=== PATIENT | female | born 1965 | race African-American/Black ===

== ENCOUNTER 2020-02-03 18:40 | Inpatient (IN) | payer MEDICARE, MEDICAID ==
[~2020-02-03] VITALS: Ht 160 cm; Wt 83.5 kg
[2020-02-03] MEDS ORDERED: SODIUM CHLORIDE 0.9% 1,000 ML IV ONE (21:08)
[2020-02-04 00:12] LABS: BASOPHILS % 0.5 % (0.0-2.0); EOSINOPHILS % 0.4 % (0.0-5.0); HEMATOCRIT. 35.5 % (36.0-48.0); HEMOGLOBIN. 12.1 g/dL (12.0-16.0); LYMPHOCYTES % 17.8 % (20.0-50.0); MEAN CORPUSCULAR HEMOGLOBIN 32.7 pg (28.0-32.0); MEAN CORPUSCULAR VOLUME 95.9 fL (81.0-99.0); MEAN PLATELET VOLUME 8.6 fl (7.4-10.4); MONOCYTES % 11.5 % (2.0-8.0); NEUTROPHILS % 69.8 % (40.0-76.0); PLATELET 248 x1000/uL (130-400); RED CELL DISTRIBUTION WIDTH 12.3 % (11.6-14.6)
[2020-02-04] MEDS ORDERED: LORAZEPAM 2MG/ML CPJ IV ONE (00:15)
[2020-02-04 00:17] LABS: CHLORIDE 105 mEq/L (98-107)
[2020-02-04 00:22] LABS: ETHANOL BLOOD < 10 mg/dL
[2020-02-04] MEDS ORDERED: KCL 20MEQ/100ML PREMIX 100 ML IV ONE (01:00)
[2020-02-04 03:02] LABS: CLARITY URINE TURBID (CLEAR); KETONES URINE TRACE (NEGATIVE); LEUKOCYTE ESTERASE URINE 2+ (NEGATIVE); NITRITE URINE POSITIVE (NEGATIVE); OCCULT BLOOD URINE 1+ (NEGATIVE); PROTEIN URINE 1+ (NEGATIVE); SPECIFIC GRAVITY URINE 1.026 (1.005-1.030)
[2020-02-04 03:12] LABS: COLOR URINE YELLOW (YELLOW)
[2020-02-04 03:19] LABS: *BARBITURATES SCREEN URINE NEGATIVE (NEGATIVE); *COCAINE SCREEN URINE PRESUMTIVE POSITIVE (NEGATIVE); CANNABINOID URINE SCREEN NEGATIVE (NEGATIVE); METHADONE URINE SCREEN NEGATIVE (NEGATIVE); OPIATES URINE SCREEN NEGATIVE (NEGATIVE); PHENCYCLIDINE URINE SCREEN NEGATIVE (NEGATIVE)
[2020-02-04 03:20] LABS: *AMPHETAMINES SCREEN URINE PRESUMTIVE POSITIVE (NEGATIVE); *BENZODIAZEPINES SCREEN URINE NEGATIVE (NEGATIVE)
[2020-02-04 10:15] VITALS: BP 137/82
[2020-02-04 10:30] VITALS: BP 137/82
[2020-02-04] MEDS ORDERED: LORAZEPAM 2MG/ML CPJ IV PRN (10:30)
[2020-02-04] MEDS ORDERED: POTASSIUM CHLORIDE 20MEQ TABLET SR PO NR (10:30)
[2020-02-04] MEDS ORDERED: ACETAMINOPHEN 325MG TABLET PO PRN ×2 (10:30→10:45)
[2020-02-04] MEDS ORDERED: CEFTRIAXONE 1 G PREMIX 50 ML IV SCH (10:30)
[2020-02-04] MEDS ORDERED: POTASSIUM CHLORIDE 20MEQ TABLET SR PO ONE (10:30)
[2020-02-04] MEDS ORDERED: ONDANSETRON HCL 4MG/2ML INJ IV PRN ×2 (10:30→10:45)
[2020-02-04 10:40] LABS: PHOSPHORUS 4.4 mg/dL (2.5-4.9)
[2020-02-04] MEDS: CEFTRIAXONE 1,000 MG in DEXTROSE 5% WATER 50 ML IV SCH (12:34)
[2020-02-04] MEDS: LORAZEPAM 2MG/ML CPJ IV PRN (18:03)
[2020-02-04 20:00] VITALS: BP 103/66
[2020-02-04] MEDS ORDERED: QUETIAPINE FUMARATE 50MG TABLET PO SCH (21:00)
[2020-02-05] VITALS: BP 126/63
[2020-02-05 04:00] VITALS: BP 119/71
[2020-02-05 08:00] VITALS: BP 122/65
[2020-02-05] MEDS: LORAZEPAM 2MG/ML CPJ IV PRN (08:53)
[2020-02-05 09:54] LABS: BASOPHILS % 0.3 % (0.0-2.0); EOSINOPHILS % 1.1 % (0.0-5.0); HEMATOCRIT. 36.3 % (36.0-48.0); HEMOGLOBIN. 12.3 g/dL (12.0-16.0); LYMPHOCYTES % 20.6 % (20.0-50.0); MEAN CORPUSCULAR HEMOGLOBIN 32.3 pg (28.0-32.0); MEAN CORPUSCULAR VOLUME 95.2 fL (81.0-99.0); MEAN PLATELET VOLUME 8.8 fl (7.4-10.4); MONOCYTES % 12.6 % (2.0-8.0); NEUTROPHILS % 65.4 % (40.0-76.0); PLATELET 235 x1000/uL (130-400); RED BLOOD CELL COUNT 3.81 mill/uL (4.2-5.4); RED CELL DISTRIBUTION WIDTH 12.6 % (11.6-14.6)
[2020-02-05 10:21] LABS: CHLORIDE 108 mEq/L (98-107)
[2020-02-05 12:00] VITALS: BP 109/65
[2020-02-05] MEDS ORDERED: POTASSIUM CHLORIDE 20MEQ TABLET SR PO NR (12:00)
[2020-02-05] MEDS ORDERED: LEVO500T2 MT (12:36)
[2020-02-05 16:00] VITALS: BP 108/65
[2020-02-05] MEDS: CEFTRIAXONE 1,000 MG in DEXTROSE 5% WATER 50 ML IV SCH (16:22)
[2020-02-05] MEDS: RISPERIDONE 1MG TABLET PO SCH (16:37)
[2020-02-05 20:00] VITALS: BP 123/71
[2020-02-05 23:02] LABS: UCG SCREEN NEGATIVE
[2020-02-06] VITALS: BP 108/61
[2020-02-06 04:00] VITALS: BP 137/80
[2020-02-06 08:00] VITALS: BP 122/64
[2020-02-06] MEDS: RISPERIDONE 1MG TABLET PO SCH ×2 (08:24→17:23)
[2020-02-06 12:15] VITALS: BP 154/92
[2020-02-06] MEDS ORDERED: CEFTRIAXONE 1,000 MG in DEXTROSE 5% WATER 50 ML IV SCH (13:00)
[2020-02-06 16:02] VITALS: BP 117/65
[2020-02-06 20:00] VITALS: BP 171/89
[2020-02-06] MEDS ORDERED: CLONIDINE 0.1MG TABLET PO PRN (22:30)
[2020-02-07] VITALS: BP 134/84
[2020-02-07 04:27] VITALS: BP 117/78
[2020-02-07 08:00] VITALS: BP 126/80
[2020-02-07] MEDS: RISPERIDONE 1MG TABLET PO SCH (08:54)
[2020-02-07] MEDS ORDERED: AMLODIPINE 10MG TABLET PO SCH (09:00)
[2020-02-07 09:21] VITALS: BP 126/80
== END 2020-02-07 12:10 | DRG 871 ==
LOC: ER 18:40 → 5WST 02-04 01:02 → ENRESERV 02-04 07:35 → ER 02-04 08:51 → 5WST 02-04 18:02 → 6EST 02-06 11:26
PROVIDERS: ADMIT Internal Medicine; ATTEND Internal Medicine
DX: A41.9 Sepsis, unspecified organism (principal); G92 Toxic encephalopathy; E44.1 Mild protein-calorie malnutrition; N39.0 Urinary tract infection, site not specified; E87.6 Hypokalemia; E66.9 Obesity, unspecified; Z20.828 Contact with and (suspected) exposure to other viral communicable diseases; I51.7 Cardiomegaly; T40.5X5A Adverse effect of cocaine, initial encounter; Z68.32 Body mass index [BMI] 32.0-32.9, adult; Y92.89 Other specified places as the place of occurrence of the external cause
CPT/HCPCS: 36415; 71045; 80048; 80053; 80305; 80307; 80320; 80329; 81003; 81025; 82962; 83735; 84100; 84484; 85025; 87077; 87186; 87635; 93005; 99285; J0696; J2060; J3480; J7030; J7060; G0480